=== PATIENT | female | born 1995 | race African-American/Black ===

== ENCOUNTER 2019-03-27 15:03 | Inpatient (IN) ==
[2019-03-27] MEDS ORDERED: ONDANSETRON 4 MG/2 ML VIAL IM ONE (18:09)
[2019-03-27] MEDS ORDERED: MEPERIDINE 50 MG/1 ML VIAL IM ONE (18:09)
[2019-03-27] MEDS: levETIRAcetam 250 MG TABLET PO SCH (21:11)
[2019-03-27] MEDS ORDERED: MEPERIDINE 50 MG/1 ML VIAL IV PRN (21:28)
[2019-03-27] MEDS: LACTATED RINGERS 1,000 ML IV SCH (21:30)
[2019-03-27] MEDS: ONDANSETRON 4 MG/2 ML VIAL IV PRN (21:33)
[2019-03-28] MEDS ORDERED: BUTORPHANOL 2 MG/ML VIAL IV ONE (01:33)
[2019-03-28] MEDS: ONDANSETRON 4 MG/2 ML VIAL IV PRN ×2 (01:43→07:56)
[2019-03-28] MEDS: LACTATED RINGERS 1,000 ML IV SCH (03:28)
[2019-03-28] MEDS ORDERED: BUTORPHANOL 2 MG/ML VIAL IV PRN (05:42)
[2019-03-28] MEDS ORDERED: OXYTOCIN/LR 20 UNIT/1,000 ML BAG IV SCH ×2 (06:00→07:30)
[2019-03-28 06:04] LABS: Basophils % 0.1 % (0.0-0.8); Hematocrit 39.5 VOL% (35.7-47.0); Hemoglobin 12.3 GM/DL (12.0-16.0); Immature Granulocytes % 0.8 %; Immature Granulocytes Absolute 0.12 #; Lymphocytes # 0.6 10*3/uL (1.4-4.0); Lymphocytes % 3.9 % (21.3-54.2); Mean Corpuscular HGB Conc 31.1 GM/DL (32-36); Mean Corpuscular Volume 91.2 FL (87-102); Mean Platelet Volume 11.8 FL (9.6-12.0); Monocytes % 2.4 % (1.7-12.7); Neutrophils % 92.8 % (38.7-73.9); Platelet Count 153 T/CUMM (130-400); Red Blood Count 4.33 MC/CUMM (3.8-5.5); White Blood Count 15.6 T/CUMM (4-12)
[2019-03-28 06:24] LABS: Lymphocytes 9 % (20-55); Segmented Neutrophils 86 % (50-85)
[2019-03-28 06:25] LABS: Platelet Estimate Adequate; Total Cells Counted 100
[2019-03-28 06:35] LABS: Albumin 2.8 G/DL (3.4-5.0); Bilirubin,Total 0.6 MG/DL (0.2-1.0); Osmolality,Calculated 266.2 MOS/KG (273-304); Total Protein 7.4 G/DL (6.4-8.3)
[2019-03-28] MEDS ORDERED: TRANEXAMIC ACID 1,000 MG/10 ML VIAL ONE (07:52)
[2019-03-28] MEDS ORDERED: miSOPROStoL 200 MCG TABLET ONE (07:52)
[2019-03-28] MEDS ORDERED: CARBOPROST TROMETHAMINE 250 MCG/ML AMP IM ONE (07:53)
[2019-03-28] MEDS ORDERED: METHYLERGONOVINE 0.2 MG/1 ML AMP ONE (07:53)
[2019-03-28] MEDS ORDERED: OXYTOCIN/LR 20 UNIT/1,000 ML BAG IV ONE (07:53)
[2019-03-28] MEDS ORDERED: LIDOCAINE 1% 50 ML VIAL ONE (07:53)
[2019-03-28] MEDS ORDERED: CITRIC ACID/SODIUM CITRATE 30 ML UDCUP PO ONE (08:45)
[2019-03-28] MEDS ORDERED: FAMOTIDINE 20 MG/2 ML VIAL IV ONE (08:45)
[2019-03-28] MEDS ORDERED: PROMETHAZINE 25 MG/1 ML VIAL IM ONE (08:45)
[2019-03-28] MEDS ORDERED: hydrOXYzine HCL 25 MG/1 ML VIAL IM PRN (08:45)
[2019-03-28] MEDS ORDERED: ONDANSETRON 4 MG/2 ML VIAL IV ONE (08:45)
[2019-03-28] MEDS ORDERED: diphenhydrAMINE 50 MG/1 ML VIAL IV PRN ×2 (08:45)
[2019-03-28] MEDS ORDERED: NALOXONE 0.4 MG/ML VIAL IV PRN (08:45)
[2019-03-28] MEDS ORDERED: ePHEDrine 50 MG/ML AMP IV PRN (08:45)
[2019-03-28] MEDS ORDERED: LACTATED RINGERS 1,000 ML IV ONE (08:45)
[2019-03-28] MEDS: levETIRAcetam 250 MG TABLET PO SCH (08:50)
[2019-03-28] MEDS ORDERED: fentaNYL 2 MCG/ROPIV 0.2% EPID 100 ML EPIDURAL SCH (09:00)
[2019-03-28 11:13] LABS: Cord Venous Blood HCO3 19.6 MMOL/L; Cord Venous Blood PCO2 46.9 MMHG; Cord Venous Blood PO2 40.2
[2019-03-28 11:20] LABS: Apearance,Urine CLEAR (Clear); Bilirubin,Urine Negative (Negative); Blood, Urine Negative (Negative); Glucose,Urine (UA) 50 mg/dL (Negative); Ketones,Urine 80 mg/dL (Negative); Mucus,Urine Few /LPF (Occasional); Nitrite,Urine Negative (Negative); Protein,Urine 30 MG/DL; RBC,Urine 11 /HPF (0-4); Squamous Epithelial Cell,Urine Occasional /HPF (0-10); Urine Specific Gravity 1.028 (1.001-1.035); WBC,Urine <1 /HPF (0-6)
[2019-03-28 11:21] LABS: Urine Color Yellow (Yellow)
[2019-03-28] MEDS ORDERED: HYDROCORTISONE 2.5% RECTAL CREAM 30 GM TUBE TOP PRN (15:34)
[2019-03-28] MEDS ORDERED: LANOLIN 50% CREAM 0.3 OZ TUBE TOP PRN (15:34)
[2019-03-28] MEDS ORDERED: BISACODYL 10 MG SUPP RECTAL PRN (15:34)
[2019-03-28] MEDS ORDERED: ACETAMINOPHEN 325 MG TABLET PO PRN (15:34)
[2019-03-28] MEDS ORDERED: DIPH/TET/ACEL PERT BOOSTER VACCINE 0.5 ML VIAL IM ONE (15:34)
[2019-03-28] MEDS ORDERED: WITCH HAZEL PADS 100/JAR TOP PRN (15:34)
[2019-03-28] MEDS ORDERED: oxyCODONE/ACETAMINOPHEN 5-325 MG TABLET PO PRN (15:34)
[2019-03-28] MEDS ORDERED: MEASLES/MUMPS/RUBELLA VACCINE 0.5 ML VIAL SUBCUT ONE (15:34)
[2019-03-28] MEDS ORDERED: RHO(D) IMMUNE GLOBULIN 300 MCG SYRINGE IM ONE (15:34)
[2019-03-28] MEDS ORDERED: BENZOCAINE 20%/MENTHOL 0.5% SPRAY 56 GM CAN TOP PRN (15:34)
[2019-03-28] MEDS: oxyCODONE/ACETAMINOPHEN 5-325 MG TABLET PO PRN ×2 (16:45→22:58)
[2019-03-28] MEDS: IBUPROFEN 800 MG TABLET PO PRN ×2 (16:45→22:58)
[2019-03-28] MEDS: DOCUSATE SODIUM 100 MG CAPSULE PO SCH (21:12)
[2019-03-29] MEDS: oxyCODONE/ACETAMINOPHEN 5-325 MG TABLET PO PRN ×2 (04:40→18:39)
[2019-03-29 06:17] LABS: Basophils % 0.2 % (0.0-0.8); Eosinophils % 0.3 % (0.00-10.9); Hematocrit 32.1 VOL% (35.7-47.0); Hemoglobin 10.2 GM/DL (12.0-16.0); Immature Granulocytes % 0.8 %; Immature Granulocytes Absolute 0.09 #; Lymphocytes # 1.1 10*3/uL (1.4-4.0); Lymphocytes % 8.9 % (21.3-54.2); Mean Corpuscular HGB Conc 31.8 GM/DL (32-36); Mean Corpuscular Volume 89.4 FL (87-102); Mean Platelet Volume 11.7 FL (9.6-12.0); Monocytes % 5.8 % (1.7-12.7); Platelet Count 135 T/CUMM (130-400); Red Blood Count 3.59 MC/CUMM (3.8-5.5); Red Cell Distribution Width 13.2 % (9.3-17.3)
[2019-03-29] MEDS: DOCUSATE SODIUM 100 MG CAPSULE PO SCH ×2 (09:29→22:12)
[2019-03-29] MEDS: IBUPROFEN 800 MG TABLET PO PRN ×2 (09:30→18:40)
[2019-03-29] MEDS ORDERED: levETIRAcetam 500 MG TABLET PO ONE (15:17)
[2019-03-30] MEDS: IBUPROFEN 800 MG TABLET PO PRN ×2 (01:19→09:50)
[2019-03-30 07:53] VITALS: BP 120/70
[2019-03-30] MEDS ORDERED: levETIRAcetam 250 MG TABLET PO SCH (09:00)
[2019-03-30] MEDS: DOCUSATE SODIUM 100 MG CAPSULE PO SCH (09:38)
[2019-03-30] MEDS: oxyCODONE/ACETAMINOPHEN 5-325 MG TABLET PO PRN (09:49)
== END 2019-03-30 12:40 | disposition home or self-care (01) | DRG 807 ==
LOC: N.LDOUT 15:03 → N.LD 15:05 → N.OB 03-28 14:14
PROVIDERS: ADMIT Obstetrics & Gynecology; ATTEND Obstetrics & Gynecology

== ENCOUNTER 2021-12-12 08:13 | Inpatient (IN) ==
[2021-12-12] MEDS ORDERED: MEPERIDINE 50 MG/1 ML VIAL IV PRN (08:52)
[2021-12-12] MEDS ORDERED: OXYTOCIN/LR 20 UNIT/1,000 ML BAG IV ONE ×3 (08:52→22:30)
[2021-12-12] MEDS ORDERED: miSOPROStoL 200 MCG TABLET RECTAL PRN (08:52)
[2021-12-12] MEDS ORDERED: BUTORPHANOL 2 MG/ML VIAL IV PRN (08:52)
[2021-12-12] MEDS ORDERED: CARBOPROST TROMETHAMINE 250 MCG/ML AMP IM PRN (08:52)
[2021-12-12] MEDS ORDERED: TRANEXAMIC ACID 1,000 MG in SODIUM CHLORIDE 0.9% 100 ML IV PRN (08:52)
[2021-12-12] MEDS ORDERED: ONDANSETRON 4 MG/2 ML VIAL IV PRN (08:52)
[2021-12-12] MEDS ORDERED: METHYLERGONOVINE 0.2 MG/1 ML AMP IM PRN (08:52)
[2021-12-12] MEDS: LACTATED RINGERS 1,000 ML IV SCH ×2 (09:10→11:55)
[2021-12-12] MEDS ORDERED: BETAMETH SODIUM PHOS/ACETATE 30 MG/5 ML VIAL IM ONE (09:20)
[2021-12-12 09:49] LABS: Basophils % 0.2 % (0.0-0.8); Eosinophils # 0.1 10*3/uL (0.0-0.87); Eosinophils % 1.3 % (0.00-10.9); Hemoglobin 10.4 GM/DL (12.0-16.0); Immature Granulocytes % 0.7 %; Immature Granulocytes Absolute 0.04 #; Lymphocytes % 18.2 % (21.3-54.2); Mean Corpuscular HGB Conc 31.5 GM/DL (32-36); Mean Corpuscular Volume 85.3 FL (87-102); Mean Platelet Volume 12.7 FL (9.6-12.0); Monocytes # 0.4 10*3/uL (0.11-0.8); Monocytes % 7.2 % (1.7-12.7); Neutrophils % 72.4 % (38.7-73.9); Platelet Count 181 T/CUMM (130-400); Red Blood Count 3.87 MC/CUMM (3.8-5.5); Red Cell Distribution Width 14.2 % (9.3-17.3); White Blood Count 5.4 T/CUMM (4-12)
[2021-12-12 09:56] LABS: Mucus,Urine Occasional /LPF (Occasional); RBC,Urine 1 /HPF (0-4); Squamous Epithelial Cell,Urine Occasional /HPF (0-10)
[2021-12-12 10:00] LABS: Bilirubin,Urine Negative (Negative); Blood, Urine Negative (Negative); Glucose,Urine (UA) Negative (Negative); Ketones,Urine Negative (Negative); Nitrite,Urine Negative (Negative); Protein,Urine Negative (Negative); Urine Appearance Clear (Clear); Urine Color Yellow (Yellow); Urine Specific Gravity 1.015 (1.001-1.035)
[2021-12-12] MEDS ORDERED: AMPICILLIN INJ 2,000 MG in SODIUM CHLORIDE 0.9% 100 ML IV ONE (10:00)
[2021-12-12 10:29] LABS: Albumin 2.6 G/DL (3.4-5.0); Bilirubin,Total 0.4 MG/DL (0.20-1.00); Osmolality,Calculated 274.4 MOS/KG (273-304); Potassium 3.5 MMOL/L (3.5-5.1); Total Protein 7.3 G/DL (6.4-8.2)
[2021-12-12] MEDS ORDERED: FAMOTIDINE 20 MG/2 ML VIAL IV ONE (11:08)
[2021-12-12] MEDS ORDERED: CITRIC ACID/SODIUM CITRATE 30 ML UDCUP PO ONE (11:08)
[2021-12-12] MEDS ORDERED: PROMETHAZINE 25 MG/1 ML VIAL IM PRN (11:08)
[2021-12-12] MEDS ORDERED: diphenhydrAMINE 50 MG/1 ML VIAL IV PRN (11:08)
[2021-12-12] MEDS ORDERED: ePHEDrine 50 MG/ML VIAL IV PRN (11:08)
[2021-12-12] MEDS ORDERED: hydrOXYzine HCL 25 MG/1 ML VIAL IM PRN (11:08)
[2021-12-12] MEDS ORDERED: NALOXONE 0.4 MG/ML VIAL IV PRN (11:08)
[2021-12-12] MEDS ORDERED: fentaNYL 2 MCG/ROPIV 0.2% EPID 100 ML EPIDURAL SCH (11:30)
[2021-12-12 13:22] LABS: Bilirubin,Urine Negative (Negative); Blood, Urine Negative (Negative); Glucose,Urine (UA) Negative (Negative); Ketones,Urine Negative (Negative); Mucus,Urine Occasional /LPF (Occasional); Nitrite,Urine Negative (Negative); Protein,Urine Negative (Negative); RBC,Urine <1 /HPF (0-4); Urine Appearance Clear (Clear); Urine Color Light Yellow (Yellow); Urine Urobilinogen 0.2 eU/dL (<2.0)
[2021-12-12] MEDS ORDERED: AMPICILLIN INJ 1,000 MG in SODIUM CHLORIDE 0.9% 100 ML IV SCH (14:00)
[2021-12-12] MEDS ORDERED: OXYTOCIN/LR 20 UNIT/1,000 ML BAG IV SCH (17:00)
[2021-12-12] MEDS ORDERED: CARBOPROST TROMETHAMINE 250 MCG/ML AMP IM ONE (17:25)
[2021-12-12] MEDS ORDERED: miSOPROStoL 200 MCG TABLET ONE (17:25)
[2021-12-12] MEDS ORDERED: METHYLERGONOVINE 0.2 MG/1 ML AMP ONE (17:25)
[2021-12-12 18:55] LABS: Cord Arterial Blood HCO3 23.1 MMOL/L
[2021-12-12 19:02] LABS: Cord Venous Blood HCO3 22.8 MMOL/L; Cord Venous Blood PCO2 42.4 MMHG; Cord Venous Blood PO2 42.8
[2021-12-12] MEDS ORDERED: HYDROCORTISONE 2.5% RECTAL CREAM 30 GM TUBE TOP PRN (22:09)
[2021-12-12] MEDS ORDERED: oxyCODONE/ACETAMINOPHEN 5-325 MG TABLET PO PRN (22:09)
[2021-12-12] MEDS ORDERED: BISACODYL 10 MG SUPP RECTAL PRN (22:09)
[2021-12-12] MEDS ORDERED: ACETAMINOPHEN 325 MG TABLET PO PRN (22:09)
[2021-12-12] MEDS ORDERED: WITCH HAZEL PADS 100/JAR TOP PRN (22:09)
[2021-12-12] MEDS ORDERED: LANOLIN 50% CREAM 0.3 OZ TUBE TOP PRN (22:09)
[2021-12-12] MEDS ORDERED: BENZOCAINE 20%/MENTHOL 0.5% SPRAY 56 GM CAN TOP PRN (22:09)
[2021-12-12] MEDS ORDERED: DIPH/TET/ACEL PERT BOOSTER VACCINE 0.5 ML VIAL IM ONE (22:30)
[2021-12-12] MEDS ORDERED: MEASLES/MUMPS/RUBELLA VACCINE 0.5 ML VIAL SUBCUT ONE (22:30)
[2021-12-12] MEDS ORDERED: RHO(D) IMMUNE GLOBULIN 300 MCG SYRINGE IM ONE (22:30)
[2021-12-12] MEDS: IBUPROFEN 800 MG TABLET PO PRN (22:38)
[2021-12-12] MEDS: DOCUSATE SODIUM 100 MG CAPSULE PO SCH (22:38)
[2021-12-13 06:32] LABS: Basophils % 0.2 % (0.0-0.8); Eosinophils % 0.1 % (0.00-10.9); Hematocrit 34.9 VOL% (35.7-47.0); Immature Granulocytes % 0.6 %; Immature Granulocytes Absolute 0.07 #; Lymphocytes # 0.7 10*3/uL (1.4-4.0); Lymphocytes % 5.7 % (21.3-54.2); Mean Corpuscular HGB Conc 31.5 GM/DL (32-36); Mean Corpuscular Volume 86.8 FL (87-102); Mean Platelet Volume 11.8 FL (9.6-12.0); Monocytes # 0.6 10*3/uL (0.11-0.8); Monocytes % 4.5 % (1.7-12.7); Neutrophils % 88.9 % (38.7-73.9); Platelet Count 178 T/CUMM (130-400); Red Blood Count 4.02 MC/CUMM (3.8-5.5); Red Cell Distribution Width 14.2 % (9.3-17.3); White Blood Count 12.2 T/CUMM (4-12)
[2021-12-13] MEDS: DOCUSATE SODIUM 100 MG CAPSULE PO SCH ×2 (09:02→21:35)
[2021-12-13] MEDS: MULTIVITAMIN (PRENATAL) TABLET PO SCH (09:02)
[2021-12-13] MEDS: oxyCODONE/ACETAMINOPHEN 5-325 MG TABLET PO PRN ×2 (17:18→23:07)
[2021-12-13] MEDS: IBUPROFEN 800 MG TABLET PO PRN (17:19)
[2021-12-14] MEDS: IBUPROFEN 800 MG TABLET PO PRN (07:25)
[2021-12-14] MEDS: oxyCODONE/ACETAMINOPHEN 5-325 MG TABLET PO PRN (07:27)
[2021-12-14] MEDS: DOCUSATE SODIUM 100 MG CAPSULE PO SCH (08:37)
[2021-12-14] MEDS: MULTIVITAMIN (PRENATAL) TABLET PO SCH (08:37)
[2021-12-14 11:06] VITALS: BP 110/61
== END 2021-12-14 11:45 | disposition home or self-care (01) | DRG 805 ==
LOC: N.LDOUT 08:13 → N.LD 08:22 → N.OB 22:08
PROVIDERS: ADMIT Obstetrics & Gynecology; ATTEND Obstetrics & Gynecology